=== PATIENT | male | born 1995 | race Caucasian/White ===

== ENCOUNTER 2018-11-15 01:00 | Emergency (ER) | payer MEDICAID ==
[~2018-11-15] VITALS: Ht 185.4 cm; Wt 109.1 kg
[2018-11-15 01:18] VITALS: Ht 185.4 cm; Wt 109.1 kg
[2018-11-15] MEDS ORDERED: STEROID (01:19)
[2018-11-15] MEDS ORDERED: ABX (01:19)
[2018-11-15 02:00] VITALS: BP 131/78
== END 2018-11-15 02:00 | disposition home or self-care (01) ==
LOC: D.ER 01:00
DX: T38.0X5A Adverse effect of glucocorticoids and synthetic analogues, initial encounter (principal)